=== PATIENT | male | born 1980 | race Two or more races ===

== ENCOUNTER 2019-09-01 17:07 | Emergency (ER) | payer BC ==
[~2019-09-01] VITALS: Ht 175.3 cm; Wt 120.7 kg
[2019-09-01 17:20] VITALS: BP 159/82
--- NOTE | 2019-09-01 17:53 | NUR ---
URINE SPECIMEN COLLECTED AND SENT TO LAB.
[2019-09-01 17:59] LABS: APPEARANCE,URINE Clear (CLEAR); BILIRUBIN,URINE Negative (NEGATIVE); BLOOD, URINE Negative Ery/uL (NEGATIVE); COLOR,URINE Yellow (YELLOW); KETONES,URINE Negative (NEGATIVE); LEUKOCYTE ESTERASE ,URINE Negative (NEGATIVE); NITRITE, URINE Negative (NEGATIVE); PROTEIN,URINE Negative (NEGATIVE); UGLUCOSE Negative (NEGATIVE); UROBILINOGEN,URINE 0.2 EU/dL (0.2)
--- NOTE | 2019-09-01 18:10 | NUR ---
ASSISTANT DIRECTOR AT BEDSIDE FOR US.
--- NOTE | 2019-09-01 18:41 | NUR ---
Patient discharged to home in stable condition. Written and verbal after care instructions given. Patient verbalizes understanding of instruction.
== END 2019-09-01 18:42 | disposition home or self-care (01) ==
LOC: ER 17:10
DX: N43.3 Hydrocele, unspecified (principal); L72.0 Epidermal cyst; E78.00 Pure hypercholesterolemia, unspecified
CPT/HCPCS: 76870-TC; 81000-TC